=== PATIENT | female | born 1960 | race Caucasian/White ===

== ENCOUNTER → 2023-03-28 12:41 | Outpatient (REF) | payer MEDICARE, SELFPAY ==
--- NOTE | 2023-03-28 12:50 | CA_ITS ---
Transthoracic Echocardiogram Patient (Last, First, Middle): Palmira Head, Gender: Female Date of : 1960 Age: 63 Procedure Date: 03/28/2023 Procedure Type: Transthoracic Echocardiogram Location: OP Height: 162.56 cm Weight: 97.52 kg BSA: 2.02 m2 Heart Rate: 88 bpm BP: 155 / 80 mmHg Salesforce Administrator: MARIE Referring MD: Stefanie FELIX Symptoms: I49.3 VENTRICULAR PREMATURE POLARIZATION Study Quality: Adequate ECG Rhythm: Sinus with PVC Conclusions: - Visually estimated LVEF 40-50%. Difficult to assess due to PVCs. - No obvious valvular pathology seen on this study. Findings Left Ventricle Normal left ventricular cavity size. The left ventricular systolic function is mildly decreased. There is paradoxical septal motion consistent with a left bundle branch block. Evidence suggests grade I (mild) diastolic dysfunction. There is mild septal asymmetric hypertrophy. Visually estimated LVEF 40-50%. Difficult to assess due to PVCs. Peak GLS -17.3%. Right Ventricle Normal right ventricular cavity size and systolic function. Atria Both atria are normal in size. Aortic Valve There is a normal trileaflet aortic valve. There is no aortic valve stenosis. There is no aortic valve regurgitation. Mitral Valve The mitral valve appears normal. There is no mitral valve regurgitation. There is no mitral valve stenosis. Pulmonic Valve The pulmonic valve is likely normal. Tricuspid Valve There is trace tricuspid valve regurgitation. There is no evidence of pulmonary hypertension. Great Vessels There is mild dilatation of the ascending aorta measuring 3.70 cm. Venous The inferior vena cava is normal in size and collapses less than 50% with inspiration. Pericardium/Pleural There is no evidence of pericardial effusion. Prior Study Comparison No prior study available for comparison. Recommendations, Care & Conclusions No obvious valvular pathology seen on this study. Measurements 2D Linear Measurements IVSd: 1.16 0.6-0.9/0.6-1.0 cm LVIDd: 4.99 3.9-5.3/4.2-5.9 cm LVIDd Index: 2.47 2.4-3.2/2.2-3.1 cm/m2 LVIDs: 4.05 2.0-3.6 cm LVPWd: 0.99 0.7-1.1 cm LA Diam: 3.30 2.7-3.8/3.0-4.0 cm LAIDs Index: 1.63 1.5-2.3 cm/m2 LV Mass: 249.49 67-162/88-224 g LV Mass Index: 123.51 43-95/49-115 g/m2 LVOT Diam: 2.20 3.0+(-)1.3 cm 2D Systolic Function EF 4C: 52.10 >55% EF 2C: 56.80 >55% Mitral Valve MV Pk E: 0.74 MV PK A: 1.14 MV Decel Time: 329.00 E/A: 0.70 E'Lateral: 5.00 E'Medial: 5.11 E/E' Med: 14.60 E/E' Lat: 14.90 PHT: 96.00 MVA PHT: 2.29 Decel Sac: 2.26 Aortic Valve AoV Pk Joaquín: 1.31 AoV Mn Joaquín: 1.02 AoV VTI: 0.25 AoV Pk Grad: 7.00 Aov Mn Grad: 5.00 FERNANDO Cont.VTI: 2.12 LVOT LVOT Pk Joaquín: 0.71 LVOT Mn Joaquín: 0.50 LVOT VTI: 0.14 LVOT Pk Grad: 2.00 LVOT Mn Grad: 1.00 LVOT Diam: 2.20 LVOT Area: 3.80 Diastolic Function MV Pk E: 0.74 MV Pk A: 1.14 E/A: 0.70 E'Medial: 5.11 E/E' Med: 14.60 E' Laterial: 5.00 E/E' Lat: 14.90 Right Ventricle TAPSE (mm): 24.80 TVS' Joaquín: 12.40 Tricuspid Valve TR Pk Joaquín: 2.35 TR Pk Grad: 22.00 RA Press: 3.00 RVSP: 25.00 Great Vessels Aorta Sinus of Valsalva: 3.40 2.0-3.5 cm Ao Asc: 3.70 2.1-3.4 cm Pulmonary Valve PV Pk Joaquín: 0.96 Peak PV Grad: 4.00 Updated in Other Vendor System with Status of Final Dillon Bains MD electronically signed on 03/29/2023 3:24:02 PM with status of Final
== END ==
LOC: HO.CARD 12:41
PROVIDERS: PCP Physician Assistant; Visit Provider Physician Assistant
DX: I49.3 Ventricular premature depolarization (principal)
CPT/HCPCS: 93306; 93356